=== PATIENT | male | born 2000 | race Caucasian/White ===

== ENCOUNTER 2019-01-28 07:12 | Emergency (ER) | payer OTHER, BC, SELFPAY ==
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
[2019-01-28 07:20] VITALS: BP 148/74; PULSE 90; RESP 18; TEMP 36.9; O2SAT 100
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
[2019-01-28 07:52] LABS: Add Manual Diff / Slide Review NO; Basophils Absolute Auto 0 /uL (0-100); Basophils Percent Auto 0.4 % (0-2); Eosinophils Absolute Auto 100 /uL (0-450); Hematocrit 42.9 % (41-53); Hemoglobin 14.9 g/dL (13.5-17.5); Lymphocytes Absolute Auto 1100 /uL (1100-4500); Lymphocytes Percent Auto 18.6 % (25-40); Mean Corpuscular HGB Conc 34.7 % (30-36); Mean Corpuscular Hemoglobin 31.3 PG (26-34); Monocytes Absolute Auto 500 /uL (0-900); Monocytes Percent Auto 7.6 % (3-14); Neutrophils Absolute Auto 4300 /uL (1500-7000); Neutrophils Percent Auto 71.4 % (50-75); Platelet Count 223 X10^3/uL (150-400); Red Blood Cell Count 4.76 X10^6/uL (4.5-5.9); Red Cell Distribution Width 12.9 % (11.6-14.8); White Blood Cell Count 6.1 X10^3/uL (4.5-11.0)
[2019-01-28 08:08] LABS: Prothrombin Time 11.3 SECONDS (10.1-12.7)
[2019-01-28 08:10] LABS: PTT Partial Thromboplastin Tim 28 SECONDS (26.4-36.2)
[2019-01-28 08:12] LABS: Alanine Aminotransferase 33 IU/L (21-72); Albumin 4.2 g/dL (3.5-5.0); Albumin Globulin Ratio 1.6 (1.0-2.8); Alkaline Phosphatase 81 U/L (38-126); Aspartate Aminotransferase 38 IU/L (17-59); Bilirubin Total 1.6 mg/dL (0.2-1.3); Blood Urea Nitrogen 16 mg/dL (9-20); Calcium 9.3 mg/dL (8.4-10.2); Carbon Dioxide 28 mmol/L (22-32); Chloride 103 mmol/L (98-107); Estimated Glomerular Filt Rate > 60.0 mL/min (>60); Ethanol (ETOH) < 10 mg/dL; Globulin 2.6 g/dL (1.7-4.1); Glucose 113 mg/dL (70-100); HEMOLYSIS < 15 (0-50); Lipase 46 U/L (23-300); Potassium 3.4 mmol/L (3.4-5.1); Sodium 139 mmol/L (137-145); Total Protein 6.8 g/dL (6.3-8.2)
[2019-01-28 08:30] VITALS: BP 137/57; PULSE 70; RESP 17; O2SAT 100
[2019-01-28 09:39] VITALS: BP 144/77; PULSE 72; RESP 16; O2SAT 98
[2019-01-28 09:45] VITALS: BP 140/76; PULSE 68; RESP 15; O2SAT 100
[2019-01-28] MEDS: ONDANSETRON 4 MG ODT SL (10:18)
[2019-01-28 11:00] VITALS: BP 125/74; PULSE 65; RESP 15; O2SAT 100
[2019-01-28 11:09] VITALS: BP 125/74; PULSE 72; RESP 16; O2SAT 98
--- NOTE | 2019-01-28 12:41 | PC.NURSE ---
Pt discharged now that [facility] person is here and doesnt need anything from chart
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
== END 2019-01-28 12:41 | disposition home or self-care (01) ==
PROVIDERS: Emergency Provider Emergency Medicine; PCP Family Medicine
DX: S01.01XA Laceration without foreign body of scalp, initial encounter (principal); S06.0X9A Concussion with loss of consciousness of unspecified duration, initial encounter; V85.5XXA Driver of special construction vehicle injured in nontraffic accident, initial encounter; Y99.0 Civilian activity done for income or pay
CPT/HCPCS: 12005; 36591; 70450; 71045; 72125; 72170; 76705; 80053; 80320; 83690; 85025; 85610; 85730; 86850; 86900; 86901; 93005; 99283; 99285